=== PATIENT | female | born 1965 | race Caucasian/White ===

== ENCOUNTER 2022-05-09 13:23 | Outpatient (CLI) | payer OTHER, SELFPAY ==
--- NOTE | 2022-05-09 13:40 | CRLHL7_ITS ---
For Patients: As a result of the Cures Act, medical imaging exams and procedure reports are released immediately into your electronic medical record. You may view this report before your referring provider. If you have questions, please contact your health care provider. BILATERAL SCREENING MAMMOGRAM WITH COMPUTER-AIDED DETECTION AND TOMOSYNTHESIS TECHNIQUE: CC and MLO views were obtained. These mammographic images have been obtained using full-field digital technique. These mammographic images were interpreted with the benefit of computer-aided detection. Breast tomosynthesis was used in this interpretation. COMPARISON FILM: 04/16/21, 02/07/20, 01/31/19. FINDINGS: The breasts are heterogeneously dense, which may obscure small masses. IMPRESSION: There is no radiographic evidence for malignancy. ASSESSMENT: BI-RADS Category 1: Negative RECOMMENDATION: Routine screening mammogram in 1 year. A lay language report of this examination will be provided to the patient. ALESSANDRO DIEZ M.D. Diagnostic/Nuclear Medicine Radiologist [email or web address] Transcribed: 05/10/2022, 3:[address]/Dictated by: Alessandro Diez MD @ 05/10/2022 8:17:00 AM (Electronically Signed)
== END 2022-05-09 13:24 | disposition home or self-care (01) ==
LOC: MAMMO 13:24
PROVIDERS: Visit Provider Nurse Practitioner
DX: Z12.31 Encounter for screening mammogram for malignant neoplasm of breast (principal); R92.2 Inconclusive mammogram
CPT/HCPCS: 77063; 77067

== ENCOUNTER 2022-08-13 19:56 | Emergency (ER) | payer OTHER, SELFPAY ==
[2022-08-13 20:06] VITALS: BP 144/87; PULSE 69; RESP 18; TEMP 36.9; O2SAT 100; BMI 36.8
[2022-08-13] MEDS: LORazepam 2 MG/ML inj 0.5 MG IVP (20:39)
[2022-08-13] MEDS: METHYLPREDNISOLONE SOD SUCC 62.5 MG/ML (125) 93.75 MG IVP (20:39)
[2022-08-13] MEDS: 0.9 % SODIUM CHLORIDE 1000 ml 1,000 ML IV (20:44)
[2022-08-13 20:47] VITALS: BP 149/84; PULSE 61; RESP 18; O2SAT 100
--- NOTE | 2022-08-13 20:56 | ED_ITS ---
HPI - General Adult General Chief complaint: Allergic Reaction Stated complaint: Allergic Reaction Time Seen by Provider: 08/13/22 20:13 History of Present Illness HPI narrative: Patient arrives via [facility] with c/o allergic reaction to Brussel sprouts . Patient tried Brussel sprouts for the first time tonight and had sudden onset diarrhea and nausea without vomiting. Patient has h/o food allergies to bananas and walnuts as a child and does not remember her reactions. Patient was given 50mg benadryl IVP and 4mg zofran IVP by EMS. Patient remains nauseated. 57-year-old woman arriving via EMS accompanied by with complaint of allergic reaction. She is complaining mostly at this time nausea. No rashes although she had gotten rather red around her ears and her right face as gesturing. She is not having any abdominal cramping. After ingesting O[place]phant sprouts for the 1st time suddenly experienced intense nausea some diarrhea. Then sensation like her asthma attack she did also note some fullness in her throat and like her tongue was getting thick. There are some food allergies but Olyphant sprouts was not known. EMS gave diphenhydramine and Zofran. She did have a little difficulty breathing but it sounds like was also hyperventilating. She had noticed some tingling periorally which has now resolved. Now also with some complaint of lower leg discomfort as has a history of right-sided sciatica. Related Data Home Medications Medication Instructions Recorded Confirmed albuterol sulfate 90 mcg/actuation 2 inh inhalation Q4-6H PRN 08/13/22 08/13/22 aerosol inhaler (Proventil HFA) cetirizine 10 mg tablet (Zyrtec) 10 mg PO BID PRN 08/13/22 08/13/22 multivitamin (Daily Multi-Vitamin 1 tab PO DAILY 08/13/22 08/13/22 tablet) Allergies Allergy/AdvReac Type Severity Reaction Status Date / Time Penicillins Allergy Intermediate Rash Verified 08/13/22 20:16 banana Allergy Unknown Verified 08/13/22 20:16 walnut Allergy Unknown Verified 08/13/22 20:16 brussel sprout Allergy Intermediate Diarrhea Uncoded 08/13/22 20:16 Review of Systems Status of ROS: Reports: 6 or more systems reviewed and unremarkable except as noted in History and below [facility] Medical History Asthma ?J45.909 - Unspecified asthma, uncomplicated (ICD-10) Surgical History (Updated 08/13/22 @ 20:15 by Lori Baca RN) H/O bilateral inguinal hernia repair ?Z98.890 - Other specified postprocedural states (ICD-10) ?Z87.19 - Personal history of other diseases of the digestive system (ICD-10) Social History Smoking Status: Never smoker Do you use any of these nicotine containing products: None Second hand tobacco smoke exposure: No How often do you have a drink containing alcohol: monthly or less How many standard drinks containing alcohol do you have on a typical day: 1 or 2 How often do you have six or more drinks on one occasion: Never AUDIT-C Alcohol total score: 1 Non-prescribed substance use: denies use service: Yes Exam Narrative: Exam Narrative: Appears anxious. Little pale. Oropharynx is sticky. Not erythematous. There is no stridor. Lungs are clear without wheeze. Heart with regular rate and rhythm. Abdomen is overweight soft and nontender. Skin is warm and dry without rash though admittedly is a little bit pinker around her ears and right face area. Neck is supple without lymphadenopathy Const: Vital Signs, click to edit/add: Vital Signs - 24 hr 08/13/22 20:06 08/13/22 20:47 Temperature 98.5 F Pulse Rate [Left P ulse Oximeter] 69 61 Respiratory Rate 18 18 Blood Pressure [Ri ght Upper Arm] 144/87 H 149/84 H Pulse Oximetry 100 100 Oxygen Delivery Me thod Room Air Room Air Documenting provider has reviewed patient's vital signs: yes Course Vital Signs Vital signs: Initial Vital Signs Temperature 98.5 F 08/13/22 20:06 Temperature Source Temporal Artery Scan 08/13/22 20:06 Pulse Rate 69 08/13/22 20:06 Pulse Rhythm Regular 08/13/22 20:06 Respiratory Rate 18 08/13/22 20:06 Blood Pressure 144/87 H 08/13/22 20:06 Blood Pressure Mean 106 H 08/13/22 20:06 Blood Pressure Position Semi-Fowlers 08/13/22 20:06 Pulse Oximetry 100 08/13/22 20:06 Oxygen Delivery Method Room Air 08/13/22 20:06 Vital Signs Temperature 98.5 F 08/13/22 20:06 Pulse Rate 69 08/13/22 20:06 Respiratory Rate 18 08/13/22 20:06 Blood Pressure 144/87 H 08/13/22 20:06 Pulse Oximetry 100 08/13/22 20:06 Oxygen Delivery Method Room Air 08/13/22 20:06 Temperature 98.5 F 08/13/22 20:06 Pulse Rate 68 08/13/22 21:43 Respiratory Rate 16 08/13/22 21:43 Blood Pressure 138/78 08/13/22 21:43 Pulse Oximetry 100 08/13/22 21:43 Oxygen Delivery Method Room Air 08/13/22 21:43 Medical Decision Making MDM Narrative Medical decision making narrative: Perhaps an atypical allergic reaction otherwise some food intolerance, vasovagal, enteritis complicated by overlying anxiety. And contemplated using another antiemetic however I think Ativan with antiemetic potential would be more effective. She is receiving a L of fluids. Will continue to monitor this potential reaction. Further will dose with Solu-Medrol On reassessments, color has improved. She seems tired now feeling markedly improved with only minimal headache remaining. She would like to go home. Will continue with course of prednisone for a few days as well. See patient discharge plan Discharge Plan Discharge Clinical Impression: Allergic reaction Patient Disposition: Home w/ Parent or Adult Condition: Improved Instructions: General Allergic Reaction (ED) Additional Instructions: Remain well hydrated. Prednisone from [facility]. Return for persistent recurrence of difficulty breathing, intractable vomiting or diarrhea. Prescriptions: No Action cetirizine [Zyrtec] 10 mg tablet 10 mg PO BID PRN albuterol sulfate [Proventil HFA] 90 mcg/actuation HFA aerosol inhaler 2 inh inhalation Q4-6H PRN multivitamin [Daily Multi-Vitamin] Tablet 1 tab PO DAILY Follow Up/Referrals: Rocael Xiao PA-C [Primary Care Provider] - Stand Alone Forms: [facility]redUPth Info Instructions
--- NOTE | 2022-08-13 21:08 | ED.NURSE ---
Patient reports improvement in nausea and headache.
[2022-08-13 21:43] VITALS: BP 138/78; PULSE 68; RESP 16; O2SAT 100
== END 2022-08-13 21:44 | disposition home or self-care (01) ==
PROVIDERS: Emergency Provider Family Medicine; PCP Physician Assistant Medical
DX: R19.7 Diarrhea, unspecified (principal); T78.1XXA Other adverse food reactions, not elsewhere classified, initial encounter
CPT/HCPCS: 96374; 96375; 99283; 99284; J2060; J2930; J7030

== ENCOUNTER 2023-05-29 12:39 | Outpatient (CLI) | payer OTHER, SELFPAY ==
--- NOTE | 2023-05-29 13:00 | MM_ITS ---
3D BILATERAL SCREENING MAMMOGRAPHY WITH TOMOSYNTHESIS AND COMPUTER ASSISTED DETECTION. INDICATION: SCREENING. COMPARISON: 05/09/2022, 04/16/2021, 02/07/2020, 01/31/2019 HETEROGENEOUSLY DENSE BREAST PARENCHYMA NOTED. FINDINGS: NO SUSPICIOUS MASSES OR ARCHITECTURAL DISTORTION. NO SUSPICIOUS CALCIFICATIONS OR ADENOPATHY. IMPRESSION: NO EVIDENCE OF MALIGNANCY. RECOMMENDATIONS: ANNUAL BILATERAL SCREENING MAMMOGRAPHY. BI-RADS CATEGORY 1. NEGATIVE.
== END 2023-05-29 12:40 | disposition home or self-care (01) ==
LOC: MAMMO 12:40
PROVIDERS: PCP Physician Assistant Medical; Visit Provider Obstetrics & Gynecology
DX: Z12.31 Encounter for screening mammogram for malignant neoplasm of breast (principal); R92.2 Inconclusive mammogram
CPT/HCPCS: 77063; 77067

== ENCOUNTER 2024-06-25 13:34 | Outpatient (CLI) | payer OTHER, SELFPAY ==
--- NOTE | 2024-06-25 13:40 | CRLHL7_ITS ---
For Patients: As a result of the Century Cures Act, medical imaging exams and procedure reports are released immediately into your electronic medical record. You may view this report before your referring provider. If you have questions, please contact your health care provider. BILATERAL SCREENING MAMMOGRAM WITH COMPUTER-AIDED DETECTION AND TOMOSYNTHESIS TECHNIQUE: CC and MLO views were obtained. These mammographic images have been obtained using full-field digital technique. These mammographic images were interpreted with the benefit of computer-aided detection. Breast Tomosynthesis was used in this interpretation. COMPARISON FILM: 05/29/23, 05/09/22, 04/16/21. FINDINGS: The breasts are heterogeneously dense, which may obscure small masses. IMPRESSION: There is no radiographic evidence for malignancy. ASSESSMENT: BI-RADS Category 1: Negative RECOMMENDATION: Routine screening mammogram in 1 year. A lay language report of this examination will be provided to the patient. Memo Fitzpatrick M.D. Diagnostic Radiologist [email or web address] SP/Dictated by: Memo Fitzpatrick MD @ 06/26/2024 1:28:00 PM (Electronically Signed)
== END 2024-06-25 13:35 | disposition home or self-care (01) ==
LOC: MAMMO 13:35
PROVIDERS: PCP Physician Assistant Medical; Visit Provider Physician Assistant Medical
DX: Z12.31 Encounter for screening mammogram for malignant neoplasm of breast (principal); R92.333 Mammographic heterogeneous density, bilateral breasts
CPT/HCPCS: 77063; 77067